=== PATIENT | female | born 1980 | race American Indian/Alaskan Native ===

== ENCOUNTER 2022-03-11 16:41 | Emergency (ER) | payer OTHER ==
[2022-03-11] MEDS ORDERED: ZIPRASIDONE MESYLATE 20 MG VIAL IM ONE (17:12)
[2022-03-11 17:57] LABS: Basophils % (Auto) 0.1 % (0.0-1.8); Hematocrit 38.4 % (30.3-42.9); Hemoglobin 12.9 gm/dl (10.1-14.3); Lymphocytes # (Auto) 0.9 K/mm3 (1.2-5.4); Lymphocytes % (Auto) 6.5 % (13.4-35.0); Mean Corpuscular HGB Conc 34 % (30-34); Mean Corpuscular Volume 99 fl (79-97); Monocytes # (Auto) 0.8 K/mm3 (0.0-0.8); Monocytes % (Auto) 5.7 % (0.0-7.3); Platelet Count 164 K/mm3 (140-440); Red Blood Count 3.87 M/mm3 (3.65-5.03); Red Cell Distribution Width 14.3 % (13.2-15.2)
[2022-03-11 18:17] LABS: BUN/Creatinine Ratio 22; Blood Urea Nitrogen 20 mg/dL (7-17); Calcium 9.7 mg/dL (8.4-10.2); Hemolysis Index 11
[2022-03-11] MEDS ORDERED: HALOPERIDOL LACTATE 5 MG/1 ML INJ ONE (19:46)
[2022-03-11 19:57] LABS: Amphetamine Screen,Urine Negative; Benzodiazepines Screen,Urine Negative; Cocaine Screen,Urine Negative; Methadone Screen,Urine Negative; Opiate Screen,Urine Negative
[2022-03-11 20:03] LABS: Bacteria,Urine 1+ /HPF (Negative); Bilirubin,Urine NEG (Negative); Blood,Urine LG (Negative); Color,Urine Yellow (Yellow); Mucus,Urine FEW /HPF; Urobilinogen,Urine < 2.0 mg/dL (<2.0)
[2022-03-11 20:12] LABS: Cannabinoid Screen,Urine Positive
--- NOTE | 2022-03-11 20:21 | Emergency Department Report ---
ED General Adult HPI - General Chief complaint: Psych Stated complaint: ANXIETY Time Seen by Provider: 03/11/22 17:12 Source: EMS Mode of arrival: Ambulatory Limitations: No Limitations - History of Present Illness Initial comments: Anxiety, crawling on the floor, states she is out of her medication called EMS , clearly had some emtional distress as BF stood her up , doesn;t have anxiety meds and got into agfitative state o si or hi -: days(s) Severity scale (0 -10): 0 Associated Symptoms: denies: denies other symptoms, confusion, chest pain, cough - Related Data Allergies Allergy/AdvReac Type Severity Reaction Status Date / Time No Known Allergies Allergy Verified 03/11/22 17:59 ED Review of Systems ROS: Stated complaint: ANXIETY Other details as noted in HPI Comment: Unobtainable due to pts medical conditions ED Past Medical Hx - Past Medical History Previous Medical History?: No - Social History Smoking Status: Never Smoker Substance Use Type: None ED Physical Exam - General Limitations: No Limitations General appearance: alert, anxious, in distress, other (agitated ) - Head Head exam: Present: atraumatic, normocephalic - Eye Eye exam: Present: normal appearance - ENT ENT exam: Present: mucous membranes moist - Neck Neck exam: Present: normal inspection - Respiratory Respiratory exam: Present: normal lung sounds bilaterally. Absent: respiratory distress - Cardiovascular Cardiovascular Exam: Present: regular rate, normal rhythm. Absent: systolic murmur, diastolic murmur, rubs, gallop - GI/Abdominal GI/Abdominal exam: Present: soft, normal bowel sounds - Extremities Exam Extremities exam: Present: normal inspection - Back Exam Back exam: Present: normal inspection - Neurological Exam Neurological exam: Present: alert, oriented X3 - Psychiatric Psychiatric exam: Present: agitated, anxious, manic - Expanded Psychiatric Exam Expanded Focused psych exam: Present: pressured speech, restlessness - Skin Skin exam: Present: warm, dry, intact, normal color. Absent: rash ED Course Vital Signs 03/11/22 03/11/22 03/11/22 17:59 18:14 19:02 Temperature 98.9 F Pulse Rate 107 H Respiratory 15 20 17 Rate Blood Pressure 146/79 152/76 [Left] O2 Sat by Pulse 98 98 98 Oximetry ED Medical Decision Making - Lab Data Result diagrams: 03/11/22 17:44 03/11/22 17:44 Critical care attestation.: If time is entered above; I have spent that time in minutes in the direct care of this critically ill patient, excluding procedure time. ED Disposition Clinical Impression: Agitation, Restlessness Disposition: 30 STILL A PATIENT Is pt being admited?: No Does the pt Need Aspirin: No Condition: Stable
--- NOTE | 2022-03-12 10:32 | Consultation ---
History of Present Illness - Reason for Consult Consult date: 03/12/22 Reason for consult: mental health evaluation - History of Present Psychiatric Illness The patient is a 42 year female with history of anxiety x 20 years. The patient reports doing well, stating she has to go back to work. She states she gets her medications from her PCP. The patient denies any current suicidal/homicidal ideation and denies hallucinations. PAST PSYCHIATRIC HISTORY: Diagnoses: Anxiety Suicide attempts or Self-harm behavior: Denies Prior psychiatric hospitalizations: Denies Substance Abuse history: Denies Previous psychiatric medications tried: Denies Outpatient treatment: PCP PAST MEDICAL HISTORY: None reported or document Family Psychiatric History: None reported or documented SOCIAL HISTORY Marital Status: Single Living Arrangements: Lives alone Employment Status: Employed Access to guns/weapons: Denies Education:College History of Abuse:Denies Legal History: Denies REVIEW OF SYSTEMS Constitutional: Negative for weight loss ENT: Negative for stridor Respiratory: Negative for cough or hemoptysis All other systems reviewed and are negative MENTAL STATUS EXAMINATION General Appearance and Behavior: Age appropriate, wearing appropriate clothes, cooperative, polite with questioning, good eye contact Cooperation: cooperative Psychomotor Behavior: Psychomotor normal Mood: anxiety Affect and affective range: congruent with stated mood Thought Process: Goal directed Thought Content: Reality oriented Speech: Hypervebal Suicidal Ideation: Denies Homicidal Ideation: Denies Hallucination: Denies Delusions: None elicited Impulse Control: Limited Insight and Judgment: Limited Memory: limited Attention:inattentive Orientation: Alert and oriented Diagnoses: Unspecified anxiety disorder Treatment Plan [id number] Start Sertraline 25MG PO daily Vistaril 25mg po Q6hrs PRN Medical: per primary Sitter: defer to primary Disposition: Do not Recommend acute psychiatric inpatient treatment. The tour consultant will provide patient with psychiatric out patient resources. Will sign off. Thanks Case staffed with Dr. Carr Medications and Allergies Medications and Allergies Allergies Allergy/AdvReac Type Severity Reaction Status Date / Time No Known Allergies Allergy Verified 03/11/22 17:59 Home Medications Medication Instructions Recorded Confirmed Last Taken Type Sertraline [Zoloft] 25 mg PO QDAY 30 Days #30 tab 03/12/22 Unknown Rx hydrOXYzine PAMOATE [Vistaril] 25 mg PO Q6HR PRN 30 Days #60 03/12/22 Unknown Rx capsule Active Meds: Active Medications Trimethoprim/Sulfamethoxazole (Sulfamethoxazole/Trimethoprim 800/160mg Ds Tab) 1 each PO Q12HR MIKAYLA; Protocol Mental Status Exam - Vital signs Last Vital Signs Temp 98.6 F 03/12/22 07:52 Pulse 90 03/12/22 07:52 Resp 16 03/12/22 07:52 BP 139/86 03/12/22 07:52 Pulse Ox 98 03/12/22 07:52 Results Result Diagrams: 03/11/22 17:44 03/11/22 17:44 Abnormal lab results 03/11/22 03/11/22 03/11/22 Range/Units 17:44 17:44 17:44 WBC 13.1 H (4.5-11.0) K/mm3 MCV 99 H (79-97) fl MCH 33 H (28-32) pg Lymph % (Auto) 6.5 L (13.4-35.0) % Lymph # (Auto) 0.9 L (1.2-5.4) K/mm3 Seg Neutrophils % 87.7 H (40.0-70.0) % Seg Neutrophils # 11.5 H (1.8-7.7) K/mm3 Carbon Dioxide 19 L (22-30) mmol/L BUN 20 H (7-17) mg/dL Glucose 106 H (65-100) mg/dL Urine WBC (Auto) (0.0-6.0) /HPF Salicylates < 0.3 L (2.8-20.0) mg/dL Acetaminophen (10.0-30.0) ug/mL 03/11/22 03/11/22 Range/Units 17:44 Unknown WBC (4.5-11.0) K/mm3 MCV (79-97) fl MCH (28-32) pg Lymph % (Auto) (13.4-35.0) % Lymph # (Auto) (1.2-5.4) K/mm3 Seg Neutrophils % (40.0-70.0) % Seg Neutrophils # (1.8-7.7) K/mm3 Carbon Dioxide (22-30) mmol/L BUN (7-17) mg/dL Glucose (65-100) mg/dL Urine WBC (Auto) 54.0 H (0.0-6.0) /HPF Salicylates (2.8-20.0) mg/dL Acetaminophen 5.0 L (10.0-30.0) ug/mL All other labs normal.
[2022-03-12] MEDS: SULFAMETHOXAZOLE/TRIMETHOPRIM 800/160MG DS TAB PO SCH ×3 (11:29→13:06)
[2022-03-12 14:15] VITALS: BP 140/78
== END 2022-03-12 14:15 | disposition still patient (30) ==
LOC: ED 16:41
DX: R45.1 Restlessness and agitation (principal)
CPT/HCPCS: 36415; 80048; 80307; 81001; 85025; 87086; 96372; 99284; J1630; J3486; 80320; G0480